=== PATIENT | female | born 1985 | race Caucasian/White ===

== ENCOUNTER 2016-07-15 21:14 | Inpatient (IN) | payer BC ==
[~2016-07-15] VITALS: Ht 170.2 cm; Wt 84.5 kg
[~2016-07-15 21:14] MED LIST: PREN-3 PO
[2016-07-15 22:00] VITALS: BP 126/79
[2016-07-15] MEDS ORDERED: OXYTOCIN 30U/ 0.9% NaCL 500ML 500 ML IV PRN (22:02)
[2016-07-15] MEDS ORDERED: D5%-LACTATED RINGERS 1,000 ML IV SCH (22:02)
[2016-07-15] MEDS ORDERED: OXYTOCIN 30U/ 0.9% NaCL 500ML 500 ML IV ONE (22:02)
[2016-07-15] MEDS ORDERED: NEWBORN KIT ONE (22:05)
[2016-07-15] MEDS ORDERED: OXYTOCIN 30U/ 0.9% NaCL 500ML 500 ML ONE (22:06)
[2016-07-15] MEDS: LACTATED RINGERS 1,000 ML IV SCH (22:17)
[2016-07-15 22:29] LABS: HEMOGLOBIN 11.4 g/dL (11.7-16.4)
[2016-07-15] MEDS ORDERED: CLINDAMYCIN PMX 900MG/50ML 50 ML ONE (22:29)
[2016-07-15] MEDS ORDERED: FENTANYL PF 100 MCG/2ML IV PRN (22:30)
[2016-07-15] MEDS ORDERED: FENTANYL PF 100 MCG/2ML IVPush PRN (22:30)
[2016-07-15] MEDS ORDERED: ONDANSETRON 2MG/ML, 2ML IVPush PRN (22:30)
[2016-07-15] MEDS: CLINDAMYCIN PMX 900MG/50ML 50 ML IVPB SCH (22:36)
[2016-07-16] MEDS ORDERED: ONDANSETRON 2MG/ML, 2ML ONE (00:20)
[2016-07-16] MEDS ORDERED: FENTANYL PF 100 MCG/2ML ONE (00:20)
[2016-07-16] MEDS ORDERED: FENTANYL/BUPIV./NS/PF 250 ML EPIDCONT ONE (01:05)
[2016-07-16] MEDS ORDERED: LACTATED RINGERS 1,000 ML IVBOLUS ONE (01:30)
[2016-07-16] MEDS: LACTATED RINGERS 1,000 ML IV SCH ×4 (03:02→22:10)
[2016-07-16] MEDS ORDERED: FENTANYL/BUPIV./NS/PF 250 ML EPIDCONT SCH (06:10)
[2016-07-16] MEDS ORDERED: LACTATED RINGERS 1,000 ML IVBOLUS PRN (06:30)
[2016-07-16] MEDS ORDERED: CLINDAMYCIN PMX 900MG/50ML 50 ML ONE (07:04)
[2016-07-16] MEDS: CLINDAMYCIN PMX 900MG/50ML 50 ML IVPB SCH (07:06)
[2016-07-16] MEDS ORDERED: LIDOCAINE 1%, 20ML ONE (07:44)
[2016-07-16] MEDS ORDERED: MISOPROSTOL 200 MCG TABLET ONE (07:44)
[2016-07-16] MEDS ORDERED: DOCUSATE 100 MG CAPSULE PO PRN (09:00)
[2016-07-16] MEDS: PRENATAL VIT/IRON/FA 1 EACH TABLET PO SCH (09:00)
[2016-07-16] MEDS ORDERED: ONDANSETRON 2MG/ML, 2ML IV PRN (09:00)
[2016-07-16] MEDS ORDERED: CARBOPROST TROMETHAMINE 250 MCG/ML, 1ML IM PRN (09:00)
[2016-07-16] MEDS ORDERED: MISOPROSTOL 200 MCG TABLET PR PRN (09:00)
[2016-07-16] MEDS ORDERED: ACETAMINOPHEN 325 MG TABLET PO PRN (09:00)
[2016-07-16] MEDS ORDERED: RHOGAM FROM BLOOD BANK 1 NOTE EA IM/IV ONE (09:00)
[2016-07-16] MEDS ORDERED: OXYcodone/APAP 5/325MG TABLET PO PRN ×2 (09:00)
[2016-07-16] MEDS ORDERED: DIPH,PERTUSS(ACELL),TET VAC/PF NC IM-VACC PRN (09:00)
[2016-07-16] MEDS ORDERED: IBUPROFEN 600 MG TABLET ONE (11:46)
[2016-07-16] MEDS: IBUPROFEN 600 MG TABLET PO PRN ×2 (11:52→17:36)
[2016-07-16] MEDS ORDERED: OXYTOCIN 30U/ 0.9% NaCL 500ML 500 ML ONE (12:29)
[2016-07-16] MEDS: OXYTOCIN 30U/ 0.9% NaCL 500ML 500 ML IV SCH ×2 (12:31→18:59)
[2016-07-16 12:45] VITALS: BP 116/72
[2016-07-16 16:49] VITALS: BP 106/70
[2016-07-16 18:38] LABS: HEMOGLOBIN 10.3 g/dL (11.7-16.4)
[2016-07-16 22:30] VITALS: BP 105/69
[2016-07-17] MEDS: IBUPROFEN 600 MG TABLET PO PRN ×3 (00:17→13:48)
[2016-07-17] MEDS: OXYTOCIN 30U/ 0.9% NaCL 500ML 500 ML IV SCH (02:16)
[2016-07-17] MEDS: LACTATED RINGERS 1,000 ML IV SCH (02:17)
[2016-07-17 07:10] VITALS: BP 110/78
[2016-07-17] MEDS: PRENATAL VIT/IRON/FA 1 EACH TABLET PO SCH (07:27)
[2016-07-17] MEDS ORDERED: OXYC-302 PO (11:20)
== END 2016-07-17 14:30 | disposition home or self-care (01) | DRG 775 ==
LOC: LDOP 21:14 → LDIP 22:01 → 2NW 07-16 13:04
PROVIDERS: ADMIT Obstetrics & Gynecology Maternal & Fetal Medicine; ATTEND Obstetrics & Gynecology Maternal & Fetal Medicine
PROC: 10E0XZZ Delivery of Products of Conception, External Approach (ICD-10-PCS; principal; 2016-07-16)
PROC: 3E0234Z Introduction of Serum, Toxoid and Vaccine into Muscle, Percutaneous Approach (ICD-10-PCS; 2016-07-16)
PROC: 3E0S3CZ (ICD-10-PCS; 2016-07-16)
PROC: 00HU33Z Insertion of Infusion Device into Spinal Canal, Percutaneous Approach (ICD-10-PCS; 2016-07-16)
DX: O99.824 Streptococcus B carrier state complicating childbirth (principal); O69.81X0 Labor and delivery complicated by cord around neck, without compression, not applicable or unspecified; O71.4 Obstetric high vaginal laceration alone; Z37.0 Single live birth; Z3A.39 39 weeks gestation of pregnancy; O26.893 Other specified pregnancy related conditions, third trimester; Z67.41 Type O blood, Rh negative; Z29.13 Encounter for prophylactic Rho(D) immune globulin
CPT/HCPCS: 36415; 82803; 85025; 85461; 86850; 86900; J2405; J2790; J3010; J2590; J7120

== ENCOUNTER → 2016-09-02 | Outpatient (CLI) | payer BC ==
[~2016-09-02] MED LIST changes: +LIDOCAINE 1%-EPI 1:100K, 20ML ONE; +OXYC-302 PO; +SODIUM BICARBONATE 4.2%, 5ML ONE
== END | disposition home or self-care (01) ==
LOC: CFH 07:43
PROVIDERS: ATTEND Obstetrics & Gynecology Maternal & Fetal Medicine
DX: N63 Unspecified lump in breast (principal)
CPT/HCPCS: 19083; 88305; J3490